=== PATIENT | male | born 1960 | race Caucasian/White ===

== ENCOUNTER 2022-10-30 07:52 | Outpatient (CLI) | payer OTHER ==
[2022-10-30 08:24] LABS: CHOL/HDL RATIO 3.1 (<5.0); CHOLESTEROL 218 mg/dL; HDL CHOLESTEROL 71 mg/dL; LDL CHOLESTEROL,CALCULATED 137 mg/dL; LDL/HDL RATIO 1.9 (<3.6); TRIGLYCERIDES 48 mg/dL; VLDL CHOLESTEROL 10 mg/dL
[2022-10-30 12:35] LABS: ESTIMATED AVERAGE GLUCOSE 120 mg/dL (70-100); HEMOGLOBIN A1c% 5.8 % (4.27-6.07)
== END 2022-10-30 07:53 | disposition home or self-care (01) ==
LOC: LAB 07:52
PROVIDERS: ATTEND Family Medicine
DX: Z13.6 Encounter for screening for cardiovascular disorders (principal); Z13.1 Encounter for screening for diabetes mellitus
CPT/HCPCS: 36415; 80061; 83036; 83721

== ENCOUNTER 2023-12-27 13:59 | Outpatient (CLI) | payer OTHER ==
[~2023-12-27 13:59] MED LIST: GADOTERATE MEGLUMINE 10 MMOL/20 ML VIAL ONE
[2023-12-27 14:31] LABS: CREATININE 0.8 mg/dL (0.6-1.3)
[2023-12-27] MEDS: GADOTERATE MEGLUMINE 10 MMOL/20 ML VIAL IVP ONE (18:17)
--- NOTE | 2024-01-18 11:00 | MRI Report ---
PROCEDURE: Abdomen W/WO INDICATIONS: PANCREATIC ABNORMALITY CONTRAST: 16.8ml Clariscan TECHNIQUE: Coronal ultra fast SE, axial 2D spoiled GE in- and [id number]; axial breath-hold T2 fast SE. Dynam ic axial ultra fast GE during the administration of contrast; post-contrast coronal ultra fast GE or 2D spoiled GE with fat saturation from the hepatic dome to the iliac crests. Optional diffusion weig hted imaging and ADC may be performed. COMPARISON: None available FINDINGS: Image quality: Excellent. Lung bases and heart: No basal effusions. Normal size heart. No hiatal hernia. Liver: Normal in size and signal with a smooth margin. No suspicious lesions. Gallbladder and biliary tree: No stones or wall thickening. Nondilated biliary tree. Spleen: No splenomegaly. Pancreas: Normal size and signal. No ductal dilatation. Homogeneous enhancement. No visible mass. Adrenals: No adrenal nodule. Kidneys and ureters: No hydronephrosis. No renal cystic lesion which requires follow up. No solid mas s. Nondilated ureters. Bowel and peritoneum: Stomach and visible bowel loops are normal. No free fluid. Specifically, no per ipancreatic fluid collection. Lymph nodes: No central or retroperitoneal adenopathy. Vessels: Normal caliber abdominal aorta, IVC, and portal vein. Bones: No aggressive osseous abnormality. Other: No significant ventral hernia. IMPRESSION: No abnormalities. Specifically, no MR evidence of pancreatic abnormality. If prior images and report become available for comparison, an addendum can be generated. Reviewed by: Sumaya Yu MD on 01/18/2024 10:59 AM PDT Approved by: Sumaay Yu MD on 01/18/2024 10:59 AM PDT Station ID: [id number]
== END 2023-12-27 14:00 | disposition home or self-care (01) ==
LOC: LAB 13:59
PROVIDERS: ATTEND Family Medicine
DX: R73.03 Prediabetes (principal); Q45.3 Other congenital malformations of pancreas and pancreatic duct
CPT/HCPCS: 36415; 74183; 82565; A9575